=== PATIENT | female | born 1940 | race Caucasian/White ===

== ENCOUNTER 2022-12-29 14:45 | Inpatient (IN) | payer MEDICARE ==
[2022-12-29] MEDS ORDERED: Iopamidol 300 61% 100 ML VIAL FS ONE (15:45)
[2022-12-29 16:05] LABS: #Basophils 0.1 10x3/uL (0.0-0.2); #Monocytes 1.2 10x3/uL (0.0-1.1); #Neutrophils 4.3 10x3/uL (1.5-8.4); %Basophils 0.9 % (0.0-2.0); %Eosinophils 10.9 % (0.0-6.0); %Lymphocytes 25.5 % (18.0-47.0); %Monocytes 13.9 % (0.0-10.0); %Neutrophils 48.5 % (40.0-75.0); Hematocrit 39.9 % (34.9-44.5); Hemoglobin 13.3 g/dL (12.0-15.5); Mean Corpuscular HGB CONC 33.3 g/dL (32.0-36.0); Mean Corpuscular Hemoglobin 32.3 pg (27.0-33.0); Mean Corpuscular Volume 96.8 fl (81.6-98.3); Mean Platelet Volume 10.9 fl (7.4-10.4); Platelet Count 319 10x3/uL (150-450); RBC Distribution Width 12.9 % (11.5-14.5); Red Blood Cell (RBC) Count 4.12 10x6/uL (3.90-5.03); White Blood Cell (WBC) Count 8.8 10x3/uL (3.5-10.5)
[2022-12-29] MEDS ORDERED: Piperacillin/Tazobactam 4.5 GM VIAL ONE (17:06)
[2022-12-29 17:23] LABS: ALT (SGPT) 11 U/L (8-55); AST (SGOT) 23 U/L (5-34); Albumin 3.3 g/dL (3.4-4.8); Alkaline Phosphatase 54 U/L (40-110); Anion Gap 15 mmol/L (10-20); BUN (Urea Nitrogen) 13 mg/dL (9.8-20.1); Bilirubin, Total 0.5 mg/dL (0.2-1.2); Calc. Creatinine Clearance 0 mL/min (70-130); Calcium 8.4 mg/dL (7.8-10.44); Carbon Dioxide 24 mmol/L (23-31); Chloride 103 mmol/L (98-107); Estimated GFR 77; Globulin 2.9 g/dL (2.4-3.5); Glucose 114 mg/dL (83-110); Lipase 5 U/L (8-78); Magnesium 1.9 mg/dL (1.6-2.6); Potassium 3.8 mmol/L (3.5-5.1); Protein, Total 6.2 g/dL (5.8-8.1); Sodium 138 mmol/L (136-145)
[2022-12-29] MEDS ORDERED: HYDROcodone/Acetaminophen 5/325 mg Tablet PO PRN (17:34)
[2022-12-29] MEDS ORDERED: Ondansetron ODT 4 MG TAB PO PRN (17:34)
[2022-12-29] MEDS ORDERED: VANCOMYCIN 1.25 GM/250 ML BAG 1.25 GM in Premix Bag 1 BAG IVPB SCH (18:45)
[2022-12-29 19:05] LABS: Bilirubin Neg (Negative); Blood, Urine Negative (Negative); Clarity Clear (Clear); Glucose, Urine (Dipstick) Normal (Negative); Ketone, Urine Negative (Negative); Leukocyte Negative (Negative); Nitrite Negative (Negative); Protein, Urine (Dipstick) Negative (Neg-Trace); Urobilinogen Normal mg/dL (Less than 2)
[2022-12-29 19:23] LABS: RBC/HPF 0-3 HPF (0-3)
[2022-12-29 19:24] LABS: Bacteria/HPF Rare-Few HPF (None Seen); CAUTI Indications for Culture Dysuria,urgency,freq; Squamous Epithelial 0-3 HPF (0-3); WBC/HPF 0-3 HPF (0-3)
[2022-12-29 19:25] LABS: Urine Culture Reflex No No
[2022-12-29] MEDS ORDERED: Ondansetron PF 4 MG/2 ML Vial ONE (20:02)
[2022-12-29] MEDS ORDERED: Piperacillin/Tazobactam 3.375 GM in Sodium Chloride 0.9% 100 ML IVPB SCH (21:00)
[2022-12-29 22:07] VITALS: BMI 27.4
[2022-12-29] MEDS: Famotidine 20 MG TAB PO SCH (22:59)
[2022-12-29] MEDS: Cefepime 2 GM in Sodium Chloride 0.9% 100 ML IVPB SCH (22:59)
[2022-12-29] MEDS: Acetaminophen 325 MG TAB PO PRN (23:35)
[2022-12-30 04:02] LABS: #Basophils 0.1 10x3/uL (0.0-0.2); #Eosinphils 1.2 10x3/uL (0.0-0.5); #Monocytes 1.2 10x3/uL (0.0-1.1); #Neutrophils 4.8 10x3/uL (1.5-8.4); %Eosinophils 13.1 % (0.0-6.0); %Lymphocytes 17.6 % (18.0-47.0); %Monocytes 13.4 % (0.0-10.0); %Neutrophils 54.6 % (40.0-75.0); Hematocrit 36.6 % (34.9-44.5); Hemoglobin 12.1 g/dL (12.0-15.5); Mean Corpuscular HGB CONC 33.1 g/dL (32.0-36.0); Mean Corpuscular Hemoglobin 32.3 pg (27.0-33.0); Mean Corpuscular Volume 97.6 fl (81.6-98.3); Mean Platelet Volume 11.1 fl (7.4-10.4); Platelet Count 337 10x3/uL (150-450); RBC Distribution Width 12.9 % (11.5-14.5); Red Blood Cell (RBC) Count 3.75 10x6/uL (3.90-5.03); White Blood Cell (WBC) Count 8.8 10x3/uL (3.5-10.5)
[2022-12-30 04:09] LABS: Anion Gap 13 mmol/L (10-20); BUN (Urea Nitrogen) 11 mg/dL (9.8-20.1); Calc. Creatinine Clearance 66 mL/min (70-130); Calcium 8.5 mg/dL (7.8-10.44); Carbon Dioxide 24 mmol/L (23-31); Chloride 111 mmol/L (98-107); Estimated GFR 85; Glucose 73 mg/dL (83-110); Potassium 3.9 mmol/L (3.5-5.1); Sodium 144 mmol/L (136-145)
[2022-12-30] MEDS ORDERED: FLU VACC QS2023(65UP)/MF59C/PF 60 MCG/0.5 ML SYRINGE IM ONE (09:00)
[2022-12-30] MEDS: Famotidine 20 MG TAB PO SCH (09:07)
[2022-12-30] MEDS: Cefepime 2 GM in Sodium Chloride 0.9% 100 ML IVPB SCH ×2 (11:53→22:39)
[2022-12-30] MEDS: Acetaminophen 325 MG TAB PO PRN (14:25)
[2022-12-30] MEDS: Vancomycin HCl 1 GM in Sodium Chloride 0.9% 250 ML 250 ML IVPB SCH (18:53)
[2022-12-30] MEDS: Atenolol 25 MG TAB PO SCH (20:33)
[2022-12-31] MEDS ORDERED: hydrALAZINE 25 MG TAB PO SCH (02:00)
[2022-12-31 04:50] LABS: Anion Gap 11 mmol/L (10-20); BUN (Urea Nitrogen) 11 mg/dL (9.8-20.1); Calc. Creatinine Clearance 61 mL/min (70-130); Calcium 8.9 mg/dL (7.8-10.44); Carbon Dioxide 26 mmol/L (23-31); Chloride 109 mmol/L (98-107); Estimated GFR 77; Glucose 81 mg/dL (83-110); Potassium 3.8 mmol/L (3.5-5.1); Sodium 142 mmol/L (136-145)
[2022-12-31 04:51] LABS: #Basophils 0.1 10x3/uL (0.0-0.2); #Eosinphils 1.2 10x3/uL (0.0-0.5); #Monocytes 1.2 10x3/uL (0.0-1.1); #Neutrophils 4.9 10x3/uL (1.5-8.4); %Basophils 1.1 % (0.0-2.0); %Eosinophils 12.4 % (0.0-6.0); %Lymphocytes 20.8 % (18.0-47.0); %Monocytes 12.8 % (0.0-10.0); %Neutrophils 52.6 % (40.0-75.0); Hematocrit 40.4 % (34.9-44.5); Hemoglobin 13.3 g/dL (12.0-15.5); Mean Corpuscular HGB CONC 32.9 g/dL (32.0-36.0); Mean Corpuscular Hemoglobin 31.9 pg (27.0-33.0); Mean Corpuscular Volume 96.9 fl (81.6-98.3); Mean Platelet Volume 10.9 fl (7.4-10.4); Platelet Count 346 10x3/uL (150-450); RBC Distribution Width 13.1 % (11.5-14.5); Red Blood Cell (RBC) Count 4.17 10x6/uL (3.90-5.03); White Blood Cell (WBC) Count 9.4 10x3/uL (3.5-10.5)
[2022-12-31] MEDS: Amlodipine 5 MG TAB PO SCH (09:46)
[2022-12-31] MEDS: Cefepime 2 GM in Sodium Chloride 0.9% 100 ML IVPB SCH (12:43)
[2022-12-31] MEDS: Acetaminophen 325 MG TAB PO PRN (15:30)
[2022-12-31] MEDS ORDERED: cloNIDine 0.1 MG TAB PO SCH (15:45)
[2022-12-31 17:28] LABS: Vancomycin, Trough 7.1 ug/mL
[2022-12-31] MEDS: Vancomycin HCl 1 GM in Sodium Chloride 0.9% 250 ML 250 ML IVPB SCH (20:01)
[2022-12-31] MEDS: Atenolol 25 MG TAB PO SCH (21:56)
[2023-01-01] MEDS: Cefepime 2 GM in Sodium Chloride 0.9% 100 ML IVPB SCH ×2 (00:11→12:00)
[2023-01-01 04:04] LABS: #Basophils 0.1 10x3/uL (0.0-0.2); #Monocytes 1.2 10x3/uL (0.0-1.1); #Neutrophils 3.2 10x3/uL (1.5-8.4); %Basophils 1.3 % (0.0-2.0); %Eosinophils 13.5 % (0.0-6.0); %Lymphocytes 26.6 % (18.0-47.0); %Monocytes 15.8 % (0.0-10.0); %Neutrophils 42.4 % (40.0-75.0); Hematocrit 36.6 % (34.9-44.5); Hemoglobin 12.2 g/dL (12.0-15.5); Mean Corpuscular HGB CONC 33.3 g/dL (32.0-36.0); Mean Corpuscular Hemoglobin 32.4 pg (27.0-33.0); Mean Corpuscular Volume 97.3 fl (81.6-98.3); Mean Platelet Volume 10.8 fl (7.4-10.4); Platelet Count 296 10x3/uL (150-450); RBC Distribution Width 13.1 % (11.5-14.5); Red Blood Cell (RBC) Count 3.76 10x6/uL (3.90-5.03); White Blood Cell (WBC) Count 7.5 10x3/uL (3.5-10.5)
[2023-01-01 04:25] LABS: Anion Gap 12 mmol/L (10-20); BUN (Urea Nitrogen) 9 mg/dL (9.8-20.1); Calc. Creatinine Clearance 66 mL/min (70-130); Calcium 8.5 mg/dL (7.8-10.44); Carbon Dioxide 25 mmol/L (23-31); Chloride 109 mmol/L (98-107); Estimated GFR 85; Glucose 82 mg/dL (83-110); Potassium 3.7 mmol/L (3.5-5.1); Sodium 142 mmol/L (136-145)
[2023-01-01] MEDS ORDERED: Vancomycin HCl 750 MG in Sodium Chloride 0.9% 250 ML 250 ML IVPB SCH (06:00)
[2023-01-01] MEDS: Amlodipine 5 MG TAB PO SCH (09:00)
[2023-01-01 12:28] VITALS: BP 114/53; TEMP 97.5
== END 2023-01-01 13:35 | disposition home or self-care (01) | DRG 863 ==
LOC: CSHERS 14:45 → CSHTELE 21:20 → OBSVTOIN 12-31 10:06
PROVIDERS: ADMIT Student in an Organized Health Care Education/Training Program; ATTEND Internal Medicine
DX: T81.49XA Infection following a procedure, other surgical site, initial encounter (principal); L03.311 Cellulitis of abdominal wall; G89.18 Other acute postprocedural pain; R00.1 Bradycardia, unspecified; K21.9 Gastro-esophageal reflux disease without esophagitis; I45.10 Unspecified right bundle-branch block; E88.09 Other disorders of plasma-protein metabolism, not elsewhere classified; F03.90 Unspecified dementia, unspecified severity, without behavioral disturbance, psychotic disturbance, mood disturbance, and anxiety; Z79.899 Other long term (current) drug therapy; Z98.890 Other specified postprocedural states; Z90.710 Acquired absence of both cervix and uterus; Y83.8 Other surgical procedures as the cause of abnormal reaction of the patient, or of later complication, without mention of misadventure at the time of the procedure; Z88.0 Allergy status to penicillin
CPT/HCPCS: 36415; 74177; 80048; 80053; 80202; 81001; 83605; 83690; 83735; 85025; 87040; 93005; 96375; 96376; G0378; J0692; J2405; J2543; J3370; J3490; J7050; Q9967